=== PATIENT | female | born 1955 | race Native Hawaiian/Other Pacific Islander ===

== ENCOUNTER 2016-03-21 11:07 | Outpatient (CLI) | payer OTHER ==
[~2016-03-21 11:07] MED LIST: AMIODARONE HCL100 MG PO; B12-ACTIVE1 MG PO; DICL75TA4 PO; DILT30TA24 PO; DULO30CA PO; FIBER LAXATIV0.52 GM PO; FIBER THERAP0.52 GM PO; HYDR-3182 PO; IRBESARTAN300 MG PO; PREDNISONE10 MG PO; STOOL SOFTENER1 TA2 PO; TRAM50TA PO; VESICARE5 MG PO; VITAMIN D1000 UNIT PO; WARF2.5T8 PO; ZANAFLEX6 MG PO
== END 2016-03-21 12:07 | disposition home or self-care (01) ==
LOC: LABW 11:07
DX: I48.91 Unspecified atrial fibrillation (principal)
CPT/HCPCS: 36415; 85610

== ENCOUNTER 2016-05-03 11:45 | Outpatient (CLI) | payer OTHER | END 2016-05-03 19:16 | disposition home or self-care (01) | LOC: LABW 11:45 | DX: I48.91 Unspecified atrial fibrillation (principal) | CPT/HCPCS: 36415; 85610 ==

== ENCOUNTER 2016-06-08 11:22 | Outpatient (CLI) | payer OTHER | END 2016-06-08 21:39 | disposition home or self-care (01) | LOC: LABW 11:22 | DX: I48.91 Unspecified atrial fibrillation (principal) | CPT/HCPCS: 36415; 85610 ==

== ENCOUNTER 2016-07-25 08:25 | Outpatient (CLI) | payer OTHER | END 2016-07-25 09:30 | disposition home or self-care (01) | LOC: LABW 08:25 | DX: I48.91 Unspecified atrial fibrillation (principal) | CPT/HCPCS: 36415; 85610 ==

== ENCOUNTER 2016-09-10 12:01 | Outpatient (CLI) | payer OTHER | END 2016-09-10 13:05 | disposition home or self-care (01) | LOC: RAD 12:01 | DX: M54.2 Cervicalgia (principal) ==

== ENCOUNTER 2016-09-21 11:26 | Outpatient (CLI) | payer OTHER | END 2016-09-21 19:09 | disposition home or self-care (01) | LOC: LABW 11:26 | DX: I48.91 Unspecified atrial fibrillation (principal) | CPT/HCPCS: 36415; 85610 ==

== ENCOUNTER 2016-10-23 08:10 | Outpatient (CLI) | payer OTHER ==
[2016-10-23 10:01] LABS: PLATELET COUNT 515 K/uL (152-353)
[2016-10-23 10:12] LABS: POTASSIUM 3.5 mmol/L (3.6-5.2); SODIUM 138 mmol/L (136-145)
== END 2016-10-23 19:29 | disposition home or self-care (01) ==
LOC: LABW 08:10
PROVIDERS: Nurse Practitioner
DX: Z01.818 Encounter for other preprocedural examination (principal); I10 Essential (primary) hypertension; E78.4 Other hyperlipidemia; R73.9 Hyperglycemia, unspecified; E53.8 Deficiency of other specified B group vitamins; E55.9 Vitamin D deficiency, unspecified
CPT/HCPCS: 36415; 80053; 80061; 82306; 82607; 83036; 85027; 93005

== ENCOUNTER 2016-11-12 09:27 | Outpatient (CLI) | payer OTHER ==
[2016-11-12 10:08] LABS: PLATELET COUNT 511 K/uL (152-353)
== END 2016-11-12 10:30 | disposition home or self-care (01) ==
LOC: LABW 09:27
PROVIDERS: Nurse Practitioner
DX: D72.828 Other elevated white blood cell count (principal); I48.91 Unspecified atrial fibrillation
CPT/HCPCS: 36415; 85027

== ENCOUNTER 2016-11-28 11:25 | Outpatient (CLI) | payer OTHER | END 2016-11-28 19:03 | disposition home or self-care (01) | LOC: LABW 11:25 | DX: I48.91 Unspecified atrial fibrillation (principal) | CPT/HCPCS: 36415; 85610 ==

== ENCOUNTER 2017-01-22 12:40 | Outpatient (CLI) | payer OTHER | END 2017-01-22 13:40 | disposition home or self-care (01) | LOC: LABW 12:40 | DX: I48.91 Unspecified atrial fibrillation (principal) | CPT/HCPCS: 36415; 85610 ==

== ENCOUNTER 2017-01-23 11:25 | Outpatient (CLI) | payer OTHER ==
[2017-01-23 12:19] LABS: SODIUM 139 mmol/L (136-145)
== END 2017-01-23 18:59 | disposition home or self-care (01) ==
LOC: LABW 11:25
PROVIDERS: Internal Medicine Cardiovascular Disease
DX: I50.9 Heart failure, unspecified (principal)
CPT/HCPCS: 36415; 80048; 83880

== ENCOUNTER 2017-02-27 11:46 | Outpatient (CLI) | payer OTHER ==
[2017-02-27 12:03] LABS: POTASSIUM 3.9 mmol/L (3.6-5.2); SODIUM 138 mmol/L (136-145)
== END 2017-02-27 12:50 | disposition home or self-care (01) ==
LOC: LABW 11:46
PROVIDERS: Internal Medicine Cardiovascular Disease
DX: I25.10 Atherosclerotic heart disease of native coronary artery without angina pectoris (principal); E78.4 Other hyperlipidemia; I10 Essential (primary) hypertension; Z79.899 Other long term (current) drug therapy; Z79.01 Long term (current) use of anticoagulants; Z51.81 Encounter for therapeutic drug level monitoring
CPT/HCPCS: 36415; 80048

== ENCOUNTER 2017-04-26 10:33 | Outpatient (CLI) | payer OTHER | END 2017-04-26 21:06 | disposition home or self-care (01) | LOC: RAD 10:33 | DX: M25.511 Pain in right shoulder (principal); R07.89 Other chest pain ==

== ENCOUNTER 2017-05-03 09:51 | Outpatient (CLI) | payer OTHER ==
[2017-05-03 10:31] LABS: POTASSIUM 3.9 mmol/L (3.6-5.2)
== END 2017-05-03 19:38 | disposition home or self-care (01) ==
LOC: CT 09:51
PROVIDERS: Nurse Practitioner
DX: I48.91 Unspecified atrial fibrillation (principal); R25.2 Cramp and spasm; R10.84 Generalized abdominal pain
CPT/HCPCS: 36415; 80048; 85610; Q9963

== ENCOUNTER 2017-09-10 13:34 | Outpatient (CLI) | payer OTHER | END 2017-09-10 21:55 | disposition home or self-care (01) | LOC: MAMMO 13:34 → LABW 13:34 → MAMMO 14:00 | DX: I48.91 Unspecified atrial fibrillation (principal); Z12.31 Encounter for screening mammogram for malignant neoplasm of breast | CPT/HCPCS: 36415; 85610 ==

== ENCOUNTER 2017-12-11 10:47 | Outpatient (CLI) | payer OTHER | END 2017-12-11 21:01 | disposition home or self-care (01) | LOC: LABW 10:47 | DX: I48.91 Unspecified atrial fibrillation (principal) | CPT/HCPCS: 36415; 85610 ==

== ENCOUNTER → 2018-06-30 | Outpatient (CLI) | payer OTHER | LOC: CT 14:00 → LABW 14:05 → CT 14:05 | DX: M54.16 Radiculopathy, lumbar region (principal); I48.91 Unspecified atrial fibrillation | CPT/HCPCS: 36415; 85610 ==

== ENCOUNTER 2018-07-23 10:00 | Outpatient (CLI) | payer OTHER | END 2018-07-23 22:24 | disposition home or self-care (01) | LOC: RESP 10:00 | DX: I48.91 Unspecified atrial fibrillation (principal) | CPT/HCPCS: 93306 ==

== ENCOUNTER 2018-11-10 11:17 | Outpatient (CLI) | payer OTHER | END 2018-11-10 23:59 | disposition home or self-care (01) | LOC: LABW 11:17 | DX: I48.1 Persistent atrial fibrillation (principal) | CPT/HCPCS: 36415; 85610 ==

== ENCOUNTER 2019-01-21 01:00 | Inpatient (IN) | payer OTHER ==
[~2019-01-21] VITALS: Ht 167.6 cm; Wt 109.9 kg
[2019-01-21] VITALS (7 sets, daily range): BP systolic 100–190; BP diastolic 47–73; TEMP 96.8–98.2; Ht 167.6 cm; Wt 109.9 kg
[2019-01-21 02:00] LABS: PLATELET COUNT 524 K/uL (152-353)
[2019-01-21 02:13] LABS: POTASSIUM 4.7 mmol/L (3.6-5.2); SODIUM 141 mmol/L (136-145)
[2019-01-21 02:17] LABS: PARTIAL THROMBOPLASTIN TIME 34.6 SECONDS (24.5-33.6)
--- NOTE | 2019-01-21 03:48 | NUR ---
PT ADMITTED FROM ER VIA W/C. PT ALERT AND ORIENTED. REPORT WAS RECIEVED FROM DAE MASON RN PRIOR TO PTS ARRIVAL.
[2019-01-21] MEDS ORDERED: GABA300C2 PO (04:55)
[2019-01-21] MEDS ORDERED: AMBIEN5 MG PO (04:57)
[2019-01-21] MEDS ORDERED: TIZA4TAB5 PO (04:59)
[2019-01-21] MEDS ORDERED: METO-837 PO (05:02)
[2019-01-21] MEDS ORDERED: CELEBREX200 MG PO (05:03)
[2019-01-21] MEDS ORDERED: COZAAR25 MG PO (05:04)
[2019-01-21] MEDS ORDERED: WARF3TAB12 PO (05:05)
[2019-01-21] MEDS ORDERED: PRED10TA27 PO (05:06)
--- NOTE | 2019-01-21 10:37 | NUR ---
(ESTIMATOR JEWELRY) WAS REQUESTED FOR A CONSULT WITH THIS PATIENT DUE TO THE BRADYCARDIA. PATIENT HAD PACEMAKER PLACED IN JULY 2018. IS TRANSFERING PATIENT TO [facility] FOR CONTINUED CARE AND SERVICES/PROCEDURE THAT IS NOT AVAILABLE AT THIS FACILITY.
--- NOTE | 2019-01-21 11:39 | NUR ---
0950 DR. SUTTON AT PT BEDSIDE. RT IN TO REPEAT EKG. REC'D ORDERS FROM DR. SUTTON TO TRANSFER PT TO [facility] IN [place], [place] 1000 REC'D CALL FROM MARJORIE DICKENS BED COORDINATOR. MARJORIE STATED "WE HAVE NO BEDS AT THIS TIME, I WILL CALL BACK AROUND LUNCH TIME AND LET YOU KNOW WHERE WE ARE, BUT IT WILL PROBABLY BE THIS AFTERNOON." [address] Nuvia MORAN PT HR IS NOT DROPPING TO 23 AND THEN GOES BACK UP TO 44 ON TELEMETRY. PT IS NON SYMPTOMATIC. DR. MORAN STATES " TRY SITTING THE PT UP AT 40 DEGREES" PT RAISED UP TO 40 DEGREES. 1045 PT HR STILL CON'T TO DROP TO THE 20'S [address] SUTTON'S OFFICE 4 TIMES WITH NO ANSWER. 1110 SPOKE WITH SONAL MCKAY AND GOT MRS. ALANIZ DR. SUTTON'S NURSE'S NUMBER 1112 CALLED MRS. ALANIZ'S PHONE, THEN SENT MESSAGE NOTIFYING HER OF NEEDING TO REPORT A CONCERN ON PT DR. SUTTON HAD SEEN THIS MORNING. 1115 REC'D PHONE CALL FROM MRS. ALANIZ NOTIFIED HER OF CONCERN WITH PT. MRS. ALANIZ NOTIFIED DR. SUTTON. MRS. ALANIZ STATED "GERARDO GIVE ME A MINUTED AND LET ME CALL YOU BACK HE IS IN WITH A PT." 1154 NO CALL BACK AT THIS TIME FROM MRS. ALANIZ OR FROM [facility]
--- NOTE | 2019-01-21 13:56 | NUR ---
1310 REC'D CALL FROM [facility]A AT TRANSFER CENTER. PT WILL GO TO ROOM CCU RM 128 AT [place], [place] ON [address]. 1320 CALLED REPORT TO ANGELO FITZPATRICK AT [facility]. 1350 PT DISCHARGED, EXPLAINED TO PT THAT HER DISCHARGE PAPERS SHOW THAT SHE IS BEING TRANSFERRED TO [facility]. 1400 EMS HERE TO GET PT. REPORT GIVEN TO CHRISTOPHER TIRE BUILDING SUPERVISOR. PT ASSISTED TO STRETCHER. 1410 EMS LEFT WITH PT VIA STRETCHER FOR TRANSFER TO [facility]
--- NOTE | 2019-01-21 19:31 | NUR ---
[address]11 [address] KILGORE FROM [address]. SUTTON'S OFFICE CALLED AND REQUESTED PT EKG'S AND RHYTHM STRIPS BE FAXED OVER TO THE OFFICE PER DR. SUTTON.
== END 2019-01-21 14:00 | disposition short-term general hospital (02) | DRG 315 ==
LOC: ED 01:00 → MED/SURG 03:18
PROVIDERS: ADMIT Student in an Organized Health Care Education/Training Program
DX: T82.897A Other specified complication of cardiac prosthetic devices, implants and grafts, initial encounter (principal); I48.20 Chronic atrial fibrillation, unspecified; R06.09 Other forms of dyspnea; Z79.01 Long term (current) use of anticoagulants; R00.1 Bradycardia, unspecified; I25.10 Atherosclerotic heart disease of native coronary artery without angina pectoris; I10 Essential (primary) hypertension; M15.8 Other polyosteoarthritis; E83.42 Hypomagnesemia; J44.9 Chronic obstructive pulmonary disease, unspecified; I51.7 Cardiomegaly; G62.89 Other specified polyneuropathies
CPT/HCPCS: 36415; 80048; 82550; 83735; 83880; 84443; 84484; 85027; 85379; 85610; 85730; 87040; 93005; 94760; 96365; 96366; 96375; 99284; J0456; J0696; J3475

== ENCOUNTER 2019-01-21 14:15 | Outpatient (CLI) | payer OTHER ==
[~2019-01-21 14:15] MED LIST changes: +AMBIEN5 MG PO; +CELEBREX200 MG PO; +COZAAR25 MG PO; +GABA300C2 PO; +METO-837 PO; +PRED10TA27 PO; +TIZA4TAB5 PO; +WARF3TAB12 PO
== END 2019-01-21 15:26 | disposition short-term general hospital (02) ==
LOC: AMB 14:15
DX: R53.1 Weakness (principal); R00.1 Bradycardia, unspecified; I48.91 Unspecified atrial fibrillation; E83.42 Hypomagnesemia; T82.119A Breakdown (mechanical) of unspecified cardiac electronic device, initial encounter
CPT/HCPCS: A0425; A0427

== ENCOUNTER 2019-04-09 15:32 | Outpatient (CLI) | payer OTHER | END 2019-04-09 23:08 | disposition home or self-care (01) | LOC: RAD 15:32 | DX: M54.5 Low back pain (principal) ==

== ENCOUNTER 2019-07-29 10:35 | Outpatient (CLI) | payer OTHER | END 2019-07-29 22:22 | disposition home or self-care (01) | LOC: RAD 10:35 | DX: M54.5 Low back pain (principal) ==

== ENCOUNTER 2019-08-17 10:56 | Outpatient (CLI) | payer OTHER | END 2019-08-17 19:53 | disposition home or self-care (01) | LOC: CT 10:56 | DX: M54.5 Low back pain (principal) ==

== ENCOUNTER 2020-03-15 11:40 | Outpatient (CLI) | payer OTHER | END 2020-03-15 22:57 | disposition home or self-care (01) | LOC: US 11:40 | PROVIDERS: ATTEND Registered Nurse | DX: M79.604 Pain in right leg (principal) ==

== ENCOUNTER 2020-06-28 08:37 | Outpatient (CLI) | payer OTHER | END 2020-06-28 21:06 | disposition home or self-care (01) | LOC: RAD 08:37 | PROVIDERS: ATTEND Orthopaedic Surgery Orthopaedic Surgery of the Spine | DX: M54.5 Low back pain (principal) ==

== ENCOUNTER 2021-10-18 14:33 | Outpatient (CLI) | payer OTHER ==
[2021-10-18 14:57] LABS: POTASSIUM 4.3 mmol/L (3.6-5.2)
== END 2021-10-18 19:02 | disposition home or self-care (01) ==
LOC: LABW 14:33
PROVIDERS: ATTEND Physician Assistant
DX: R60.0 Localized edema (principal); R06.02 Shortness of breath
CPT/HCPCS: 36415; 80048; 83880

== ENCOUNTER 2021-11-14 09:50 | Outpatient (CLI) | payer OTHER ==
[2021-11-14 10:46] LABS: POTASSIUM 3.6 mmol/L (3.6-5.2)
== END 2021-11-14 19:00 | disposition home or self-care (01) ==
LOC: LABW 09:50 → RESP 09:50
PROVIDERS: ATTEND Physician Assistant
DX: R60.0 Localized edema (principal); Z79.899 Other long term (current) drug therapy; R06.09 Other forms of dyspnea
CPT/HCPCS: 80048; 83880

== ENCOUNTER 2022-04-18 14:50 | Outpatient (CLI) | payer OTHER ==
[2022-04-18 15:09] LABS: POTASSIUM 4.3 mmol/L (3.6-5.2)
== END 2022-04-18 19:34 | disposition home or self-care (01) ==
LOC: LABW 14:50
PROVIDERS: ATTEND Internal Medicine Cardiovascular Disease
DX: Z79.899 Other long term (current) drug therapy (principal)
CPT/HCPCS: 36415; 80048